=== PATIENT | female | born 1960 | race African-American/Black ===

== ENCOUNTER 2021-01-27 19:44 | Inpatient (IN) | payer BC, SELFPAY ==
--- NOTE | ~2021-01-27 | MR_ITS ---
EXAMINATION: MR MRCP wo/w con/w 3D wo ind DATE: 01/29/2021 11:35 INDICATION: Recurrent pancreatitis. TECHNIQUE: Magnetic resonance imaging (MRI) of the abdomen was performed without and with 20 mL Multi Shanel intravenous contrast. Sequences included coronal T2-weighted FS FSE, coronal T2-weighted FSE, a xial T1-weighted LAVA, coronal FS FIESTA, axial dual-echo T1-weighted SPGR, coronal lava-FLEX, sagitt al T2-weighted FSE, axial T2-weighted FSE, and axial DWI. Thick-slab T2-weighted FSE images were obta ined for magnetic resonance cholangiopancreatography (MRCP). Maximum intensity projection 3-D reconst ructions of the volumetric data were created by the technologist. Postcontrast sequences included cor onal LAVA-flex and time course of axial T1-weighted LAVA. COMPARISON: CT abdomen and pelvis 01/27/2021, 12/03/2015 FINDINGS: ABDOMEN MRI: A 16 mm mass in inferolateral right breast was present on 12/03/2015, likely benign. Ther e is diffuse hepatic steatosis. There are changes of cholecystectomy. The spleen is normal. There is edema in and around the head of the pancreas, consistent with acute interstitial pancreatitis. The ad renal glands and kidneys are normal. There are no dilated loops of bowel. There are no pathologically enlarged lymph nodes. There is no free intraperitoneal fluid. ABDOMEN MRCP: The common duct is normal and measures 5 mm. No choledocholithiasis. IMPRESSION: 1. Acute interstitial pancreatitis. 2. No choledocholithiasis. Reviewed, dictated and finalized at location B. IT OPERATIONS PROCESSOR
--- NOTE | ~2021-01-27 | CT_ITS ---
EXAMINATION: CT abdomen pelvis w con EXAM DATE: 01/27/2021 21:25 INDICATION: Pancreatitis. Back pain. Cough. TECHNIQUE: Spiral CT of the abdomen and pelvis was performed following intravenous injection of 100 m L Omnipaque 350. Axial, coronal and sagittal images of the abdomen and pelvis were reviewed. The do se-length product (DLP) for this examination was 1164.78 mGy-cm. The exposure was tailored according to patient size (auto mA exposure control), and iterative reconstruction (ASIR) was used as addition al dose reduction technique. Comparison is made to prior examination from 10/12/2018. FINDINGS: There is a round mass within the right breast measuring up to 1.4 cm, inferior to the nippl e. No spiculations to this, could be a fibroadenoma but correlation with patient's mammography is rec ommended. The liver, spleen, adrenal glands and pancreas are unremarkable. There are cholecystectomy clips. P ortal and splenic veins are patent. Kidneys enhance symmetrically. There is no hydronephrosis. Th e uterus is unremarkable. Left fundal fibroid measuring about 2 cm. The bladder is unremarkable. Th ere is no retroperitoneal or pelvic lymphadenopathy. There is mild scattered arteriosclerotic disea se. The appendix is normal. The stomach and small bowel are unremarkable. There is expected amount of c olonic stool. No free intraperitoneal gas. The heart is normal in size. There are no pericardial or pleural effusions. The lung bases are unremarkable. There are no osteoblastic or osteolytic les ions identified. IMPRESSION: 1. Small right breast mass without spiculation could be fibroadenoma but correlation with patient's mammography indicated. 2. Small fibroid. Reviewed, dictated and finalized at location A. OR INFORMATION SYSTEMS ARCHITECT IMPRESSION: 1. Small right breast mass without spiculation could be fibroadenoma but corre lation with patient's mammography indicated. 2. Small fibroid.
--- NOTE | ~2021-01-27 | XR_ITS ---
EXAMINATION: XR chest 1V portable EXAM DATE: 01/27/2021 21:02 INDICATION: Cough. Hypertension. TECHNIQUE: Portable AP frontal chest x-ray was obtained. Comparison is made to prior examination from 06/27/2014. FINDINGS: The lungs are clear. There are no pleural effusions. Cardiac silhouette is prominent but magnified on this AP technique. There is no pneumothorax suspected. The bones and soft tissues are unremarkable. IMPRESSION: Unremarkable chest x-ray exam. Reviewed, dictated and finalized at location A. T MARKETING MANAGER
[2021-01-27 19:47] VITALS: BP 182/81; PULSE 72; RESP 17; TEMP 36.2; O2SAT 100
[2021-01-27 20:03] LABS: Basophils Percent Auto 0.3 % (0.2-1.2); Eosinophils Absolute Auto 0.4 K/mm3 (0-0.3); Eosinophils Percent Auto 3.5 % (0-4.4); Hematocrit 39.1 % (37.0-47.0); Hemoglobin 12.6 g/dL (12.0-15.0); Immature Granulocyte Absolute 0.02 K/mm3 (0.00-0.031); Immature Granulocyte Percent A 0.2 % (0-0.5); Lymphocytes Absolute Auto 4.09 K/mm3 (0.9-3.2); Lymphocytes Percent Auto 39.3 % (18.3-44.2); Mean Corpuscular HGB Conc 32.2 g/dl (32-36); Mean Corpuscular Hemoglobin 28.6 pg (26-34); Mean Corpuscular Volume 88.9 fl (80-100); Mean Platelet Volume 10.7 fl (7.4-10.4); Monocytes Absolute Auto 1.1 K/mm3 (0.1-0.6); Monocytes Percent Auto 10.2 % (2.6-8.5); Neutrophils Absolute Auto 4.8 K/mm3 (1.3-6.7); Neutrophils Percent Auto 46.5 % (45.5-73.1); Platelet Count Result 253 k/mm3 (150-375); Red Cell Distribution Width 13.6 % (11.5-14.5); White Blood Count 10.4 K/mm3 (4.5-10.0)
[2021-01-27 20:12] LABS: Alanine Aminotransferase 21 U/L (4-35); Albumin Level 4.4 g/dL (3.5-5.1); Alkaline Phosphatase 126 U/L (38-126); Anion Gap 5 mmol/L (8-16); Aspartate Amino Transferase 20 U/L (14-36); Bilirubin,Total 0.3 mg/dL (0.2-1.3); Blood Urea Nitrogen 15 mg/dL (7-17); Calcium 9.7 mg/dL (8.4-10.2); Carbon Dioxide 29 mmol/L (22-30); Chloride 104 mmol/L (98-107); Estimated CRCL calculation 117 ml/min; Estimated Glomerular Filt Rate > 60; Glucose 126 mg/dL (65-110); Lipase 1254 U/L (23-300); Potassium 4.1 mmol/L (3.4-5.0); Sodium 138 mmol/L (137-145)
[2021-01-27 20:30] VITALS: O2SAT 100
[2021-01-27 20:32] VITALS: BP 172/77; PULSE 68; RESP 18; O2SAT 100
[2021-01-27 20:58] LABS: Add Urine Microscopic? YES; Appearance Urine Clear (Clear); Bilirubin Urine Negative (Negative); Blood Urine Negative (Negative); Color Urine Yellow (Yellow); Glucose Urine UA Negative (Negative); Ketones Urine Negative (Negative); Leukocyte Esterase Ur Negative LEU/UL (Negative); Mucus Urine Rare /lpf; Nitrate Urine Negative (Negative); Protein Urine Negative (Negative); RBC Urine 0-2 /hpf (0-2); Specific Grav Ur 1.026 (1.001-1.035); Squamous Epithelial Cell Urine Occasional /hpf (Few); WBC Urine 0-3 /hpf
[2021-01-27] MEDS: SODIUM CHLORIDE 0.9% IV 1,000 ML 999 ML IV CONT (21:02)
[2021-01-27 21:07] VITALS: BP 153/65; PULSE 78; RESP 20; O2SAT 100
--- NOTE | 2021-01-27 21:13 | ED.ABDPAIN ---
HPI - Abdominal Pain General Chief Complaint: Abdominal Pain Stated Complaint: abd pain Time Seen by Provider: 01/27/21 20:36 Source: patient Mode of arrival: ambulatory Limitations: no limitations History of Present Illness HPI narrative: 60 year old female with PMH HTN, GERD, DM complains of epigastric pain for 5 days. Patient with history of pancreatitis, but originally thought she had abdominal pain due to dry cough she has been having since Friday. Today epigastric pain started radiating to back, became more intense which is similar to previous bouts of pancreatitis. Patient has had a cholecystectomy and does not drink ETOH; states her doctors are unsure why she gets pancreatitis. 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 No flank pain, no dysuria, no hematemesis, no melena. Related Data Home Medications Medication Instructions Recorded Confirmed aspirin 81 mg tablet,delayed 81 mg PO DAILY 04/06/19 01/28/21 release atorvastatin 40 mg tablet 40 mg PO DAILY 04/06/19 01/28/21 insulin glargine 100 unit/mL (3 60 unit SUB-Q DAILY 04/06/19 01/28/21 mL) subcutaneous pen insulin lispro 100 unit/mL 10 unit SUB-Q TIDWM 04/06/19 01/28/21 subcutaneous pen lisinopril 10 mg tablet 10 mg PO DAILY 04/06/19 01/28/21 metformin 1,000 mg tablet 1,000 mg PO DAILY 04/06/19 01/28/21 diphenhydramine HCl 50 mg PO HS PRN 01/28/21 01/28/21 Allergies Allergy/AdvReac Type Severity Reaction Status Date / Time aspirin Allergy Unknown Unknown Verified 01/28/21 03:42 erythromycin base Allergy Unknown Unknown Verified 01/28/21 03:42 Review of Systems Review of Systems: CONSTITUTIONAL: no fever, no weight loss, no confusion EYES: no vision changes, no eye pain ENT: no rhinorrhea, no sore throat, no difficulty swallowing CARDIOVASCULAR: no chest pain, no leg edema, no palpitations RESPIRATORY: no cough, no shortness of breath, no hemoptysis GASTROINTESTINAL: positive for abdominal pain, positive for nausea, no vomiting, no diarrhea GENITOURINARY: no flank pain, no dysuria, no hematuria SKIN: no rash, no jaundice MUSCULOSKELETAL: no back pain, no trauma. NEUROLOGIC: No headache, no dizziness, no focal weakness PSYCHIATRIC: No hallucinations, no suicidal ideation [facility] Past Medical History Medical History (Updated 02/01/21 @ 14:54 by Kimmie Bustamante PA-C) Acid reflux Diabetes Hyperlipidemia Hypertension Surgical History Surgical History History of carpal tunnel surgery History of cholecystectomy History of dilation and curettage History of knee replacement procedure of right knee History of tubal ligation Family History Family History Sibling Family history of thyroid disease Family history of glaucoma Family history of diabetes mellitus in first degree relative Family history of hearing loss Grandparent Family history of glaucoma Family history of hearing loss Mother Family history of diabetes mellitus in first degree relative Other Diabetes mellitus Social History Social History (Updated 01/28/21 @ 14:48 by Sylvia Gonzalez PA-C) Smoking packs per day: 0.5 Smoking cigarettes per day: 10.0 Smoking status: Current every day smoker Tobacco type: cigarettes Alcohol intake: current Substance use: current Substance use type: marijuana Other substance usage details: social drinker on rare occasions. Spiritual care concerns: No Exam Narrative: General: alert, afebrile, answering all questions appropriately Head: normocephalic, atraumatic Eyes: EOMI bilaterally, anicteric, no injection ENT: moist mucous membranes, oropharynx patent, no rhinorrhea Neck: supple, trachea midline, no JVD Chest: equal chest rise bilaterally, no chest wall trauma noted Lungs: clear to auscultation bilaterally, respirations unlabored CV: regu
[2021-01-27 21:15] LABS: Prothrombin Time 12.7 Seconds (11.1-14.7)
[2021-01-27 21:16] LABS: Partial Thromboplastin Time 27.9 SECONDS (22.3-36.8)
[2021-01-27] MEDS: ONDANSETRON INJ 4 MG/2 ML VIAL IV PUSH (21:52)
[2021-01-27] MEDS: MORPHINE SULFATE (*CRX) 4 MG/ML INJ IV PUSH ×2 (21:54→23:43)
[2021-01-27 22:06] VITALS: BP 144/66; PULSE 83; RESP 18; O2SAT 100
[2021-01-27 23:20] VITALS: BP 132/54; PULSE 71; RESP 16; O2SAT 100
[2021-01-28] VITALS (7 sets, daily range): BP systolic 146–157; BP diastolic 64–90; PULSE 60–76; RESP 14–20; TEMP 35.7–36.2; O2SAT 97–100; BMI 38.5
[2021-01-28] MEDS: MORPHINE SULFATE (*CRX) 4 MG/ML INJ IV PUSH ×2 (01:45→06:52)
--- NOTE | 2021-01-28 03:41 | ADMGEN ---
This patient, Alyce Damian, was admitted to Medical Room [facility] @0340. Patient/family oriented to hospital policies and general routines including ID bracelet, bed and alarms, visiting hours, pain management, procedures, bathroom and other care routines, personal items, smoking policy, room service/diet, and visiting hours. Information on how to activate the Rapid Response Team has been discussed. Patient/Family are encouraged to report perceived risks to care and to ask questions if they do not understand what they are told or what they should do.
[2021-01-28] MEDS: LACTATED RINGERS 1,000 ML 200 ML IV CONT (04:01)
[2021-01-28 08:00] LABS: Glucose Point of Care 107 mg/dl (65-105)
[2021-01-28] MEDS: ENOXAPARIN 40 MG/0.4 ML SYRINGE SUB-Q (08:30)
[2021-01-28] MEDS: LACTATED RINGERS 1,000 ML 125 ML IV CONT ×2 (10:17→18:22)
[2021-01-28 11:42] LABS: Glucose Point of Care 104 mg/dl (65-105)
--- NOTE | 2021-01-28 14:36 | PM.IMHP ---
H&P: HPI History of Present Illness Date/Time: 01/28/21 14:36 Chief Complaint: abdominal pain Narrative: Pt is a 60 yo female w/ hx of HTN, HLD, DM, and pancreatitis, presented to ED w/ complaint of epigastric pain x5 days. She states 1 week ago she developed a dry cough and nasal congestion, and thought her coughing was irritating her stomach. She got a covid test which came back negative. She states 5 days ago the epigastric pain worsened and began radiating to her back. She describes the pain as aching in the front and stabbing in the back. Pain was 10/10 prior to pain medication. Her abdominal pain is controlled at this time but she does report that she developed a headache after receiving the morphine. No nausea, vomiting, diarrhea, fever, chills. She states she is not taking deep breaths because it makes the pain worse. Admits to approximately 3 hospitalizations per year due to pancreatitis but does not know what is causing it. She states she only has a drink maybe once every few months but does not drink etoh regularly. She has hx of cholecystectomy. Does not currently have a GI doctor. On presentation pt was found to have labs significant for a lipase of 1254. CT abd/pelv was unremarkable. Pt was admitted for acute on chronic pancreatitis. Review of Systems Review of Systems: General: Denies fevers, chills, bodyaches, or fatigue Eyes: Denies vision changes or eye pain ENT: + nasal congestion, no sore throat Respiratory: + cough, no shortness of breath Cardiovascular: Denies chest pain, palpitations, or lower extremity edema Gastrointestinal: + abdominal pain, no nausea, vomiting, or diarrhea Genitourinary: Denies dysuria or urinary frequency, +concentrated urine Musculoskeletal: + back pain Neurological: + headache (which started after the morphine), paraesthesias, or motor weakness Integumentary: Denies rash or other skin lesions Psychiatric: Denies SI/HI [facility] Past Medical History Medical History (Updated 01/28/21 @ 14:47 by Sylvia Gonzalez PA-C) Acid reflux Diabetes Hyperlipidemia Hypertension Surgical History Surgical History History of carpal tunnel surgery History of cholecystectomy History of dilation and curettage History of knee replacement procedure of right knee History of tubal ligation Family History Family History Sibling Family history of thyroid disease Family history of glaucoma Family history of diabetes mellitus in first degree relative Family history of hearing loss Grandparent Family history of glaucoma Family history of hearing loss Mother Family history of diabetes mellitus in first degree relative Other Diabetes mellitus Social History Social History (Updated 01/28/21 @ 14:48 by Sylvia Gonzalez PA-C) Smoking packs per day: 0.5 Smoking cigarettes per day: 10.0 Smoking status: Current every day smoker Tobacco type: cigarettes Alcohol intake: current Substance use: current Substance use type: marijuana Other substance usage details: social drinker on rare occasions. Spiritual care concerns: No Meds Home Medications and Allergies Home Medications Medication Instructions Recorded Confirmed Type aspirin 81 mg tablet,delayed 81 mg PO DAILY 04/06/19 01/28/21 History release atorvastatin 40 mg tablet 40 mg PO DAILY 04/06/19 01/28/21 History insulin glargine 100 unit/mL (3 60 unit SUB-Q DAILY 04/06/19 01/28/21 History mL) subcutaneous pen insulin lispro 100 unit/mL 10 unit SUB-Q TIDWM 04/06/19 01/28/21 History subcutaneous pen lisinopril 10 mg tablet 10 mg PO DAILY 04/06/19 01/28/21 History metformin 1,000 mg tablet 1,000 mg PO DAILY 04/06/19 01/28/21 History diphenhydramine HCl [Benadryl] 50 mg PO HS PRN 01/28/21 01/28/21 History Allergies Allergy/AdvReac Type Severity Reaction Status Date / Time
[2021-01-28 17:14] LABS: Glucose Point of Care 108 mg/dl (65-105)
[2021-01-29] MEDS: LACTATED RINGERS 1,000 ML 125 ML IV CONT ×2 (02:26→10:21)
[2021-01-29 05:07] LABS: Basophils Percent Auto 0.4 % (0.2-1.2); Eosinophils Absolute Auto 0.2 K/mm3 (0-0.3); Eosinophils Percent Auto 1.9 % (0-4.4); Hemoglobin 12.6 g/dL (12.0-15.0); Immature Granulocyte Absolute 0.01 K/mm3 (0.00-0.031); Immature Granulocyte Percent A 0.1 % (0-0.5); Lymphocytes Absolute Auto 2.52 K/mm3 (0.9-3.2); Lymphocytes Percent Auto 31.6 % (18.3-44.2); Mean Corpuscular HGB Conc 32.3 g/dl (32-36); Mean Corpuscular Hemoglobin 28.8 pg (26-34); Mean Platelet Volume 10.2 fl (7.4-10.4); Monocytes Absolute Auto 0.7 K/mm3 (0.1-0.6); Monocytes Percent Auto 8.2 % (2.6-8.5); Neutrophils Absolute Auto 4.6 K/mm3 (1.3-6.7); Neutrophils Percent Auto 57.8 % (45.5-73.1); Platelet Count Result 243 k/mm3 (150-375); Red Blood Count 4.38 M/mm3 (4.2-5.4); Red Cell Distribution Width 13.4 % (11.5-14.5)
[2021-01-29 05:19] LABS: Alanine Aminotransferase 105 U/L (4-35); Albumin Level 4.3 g/dL (3.5-5.1); Alkaline Phosphatase 160 U/L (38-126); Anion Gap 3 mmol/L (8-16); Aspartate Amino Transferase 55 U/L (14-36); Bilirubin,Total 0.8 mg/dL (0.2-1.3); Blood Urea Nitrogen 9 mg/dL (7-17); Carbon Dioxide 33 mmol/L (22-30); Chloride 102 mmol/L (98-107); Estimated CRCL calculation 101 ml/min; Estimated Glomerular Filt Rate > 60; Glucose 141 mg/dL (65-110); Lipase 223 U/L (23-300); Magnesium 1.9 mg/dL (1.6-2.3); Potassium 4.4 mmol/L (3.4-5.0); Sodium 138 mmol/L (137-145)
[2021-01-29 06:00] VITALS: BP 166/62; PULSE 64; RESP 21; TEMP 36.2; O2SAT 100
[2021-01-29] MEDS: ENOXAPARIN 40 MG/0.4 ML SYRINGE SUB-Q (07:50)
[2021-01-29] MEDS: PANTOPRAZOLE SODIUM IV 40 MG VIAL IV PUSH (07:51)
[2021-01-29 07:58] LABS: Glucose Point of Care 128 mg/dl (65-105)
--- NOTE | 2021-01-29 11:26 | PM.IMPN ---
Progress Note: A&P Assessment and Plan (1) Acute pancreatitis: Qualifiers: Acute pancreatitis complication: no infection or necrosis Pancreatitis type: idiopathic Qualified Code(s): K85.00 - Idiopathic acute pancreatitis without necrosis or infection Code(s): K85.90 - Acute pancreatitis without necrosis or infection, unspecified Status: Acute Assessment and Plan: -Lipase 1254 -CT abd/pelv unremarkable -pt w/ hx of chronic pancreatitis -denies alcohol use, hx of cholecystectomy, no inciting medications noted on medication list -MRCP pending -not currently followed with GI, requesting GI consult to determine cause of recurrent pancreatitis -Consult placed, appreciate any additional recommendations -Lipase normalized at 223 -Will hopefully advance to clears today pending GI consult and MRCP (2) Diabetes: Code(s): E11.9 - Type 2 diabetes mellitus without complications Status: Acute Assessment and Plan: -DM II, home meds are 10 units of novolog TIDWM scheduled and 60 units of Lantus QHS -Glucose checks ACHS -SS low dose and hypoglycemia protocol -Will restart just 10 units Lantus tonight. She is NPO but transitioning to clears today, fasting BS this morning was 141. -Closely monitor (3) Hypertension: Code(s): I10 - Essential (primary) hypertension Status: Acute Assessment and Plan: -resume home meds when tolerating PO -hydralazine available prn (4) Acid reflux: Code(s): K21.9 - Gastro-esophageal reflux disease without esophagitis Status: Acute Assessment and Plan: -protonix 40 mg IV daily (5) Personal history of nicotine dependence: Code(s): Z87.891 - Personal history of nicotine dependence Status: Acute Assessment and Plan: -nicotine patch -discussed smoking cessation with patient for approximately 10 minutes Subjective Date/time seen: 01/29/21 11:26 Interval history: Pt is a 60 yo female w/ hx of HTN, HLD, DM, and pancreatitis, presented to hospital w/ epigastric pain and was admitted for pancreatitis. Today she is feeling much better. Would like to try clears. Still has mild achey pain epigastric area. No N/V. She reiterates that she would like to establish care with a GI doctor in attempt to figure out what is causing her recurrent pancreatitis. Review of Systems Review of Systems: General: Denies fevers, chills, bodyaches, or fatigue Eyes: Denies vision changes or eye pain ENT: + nasal congestion, no sore throat Respiratory: + cough, no shortness of breath Cardiovascular: Denies chest pain, palpitations, or lower extremity edema Gastrointestinal: + abdominal pain, no nausea, vomiting, or diarrhea Genitourinary: Denies dysuria or urinary frequency, +concentrated urine Musculoskeletal: + back pain Neurological: Denies headache, paraesthesias, or motor weakness Integumentary: Denies rash or other skin lesions Exam Narrative: General: No acute distress, non toxic appearing, obese Eyes: PERRL, no scleral icterus HEENT: NCAT, external ears normal, MMM Respiratory: No respiratory distress, Lungs CTA bilaterally, no wheezing Cardiovascular: RRR, no murmur Abdominal: Soft, mild epigastric tenderness, non distended, no rebound or guarding Musculoskeletal: Moves all 4 extremities, no edema Neurological: A/Ox3, speech normal, no facial asymmetry Skin: Warm, dry, no rashes Psychiatric: Normal affect, normal mood Objective Data Vital Signs Vital Signs: Vital Signs - 24 hr 01/28/21 14:00 01/28/21 20:00 01/28/21 22:00 Temperature 96.3 F L 97.2 F L Pulse Rate 60 60 74 Respiratory Rate 14 14 20 Blood Pressure 157/90 H 157/83 H Pulse Oximetry 100 100 98 01/29/21 06:00 Temperature 97.1 F L Pulse Rate 64 Respiratory Rate 21 H Blood Pressure 166/62 H Pulse Oximetry 100 Intake/Output Intake/Output: Intake & Output 01/26/21 01/27/21 01/28/21
[2021-01-29 11:45] LABS: Glucose Point of Care 97 mg/dl (65-105)
--- NOTE | 2021-01-29 13:42 | WPDGICN ---
Assessment and Plan Assessment and plan (1) Acute pancreatitis: Qualifiers: Acute pancreatitis complication: no infection or necrosis Pancreatitis type: idiopathic Qualified Code(s): K85.00 - Idiopathic acute pancreatitis without necrosis or infection Code(s): K85.90 - Acute pancreatitis without necrosis or infection, unspecified Status: Acute Assessment and Plan: Patient admitted the hospital with abdominal pain elevated lipase. CT scan reveals no evidence pancreatitis MRCP likewise reveals no obvious explanation for pancreatitis. It is possible that elevated lipase is spurious in related other conditions. At the present time lipase returned to normal and patient is pain free would recommend advancing to a low-fat diet. Early discharge he may benefit from supplemental pancreatic enzymes. Mild elevation of liver function tests were identified and should be followed to resolution. if patient has idiopathic pancreatitis given no history of gallstones status post cholecystectomy. and no alcohol intake. Consider other etiologies. Lipid panel will be obtained as well as IgG levels. (2) Diabetes: Code(s): E11.9 - Type 2 diabetes mellitus without complications Status: Acute (3) Transaminitis: Code(s): R74.01 - Elevation of levels of liver transaminase levels Status: Acute Assessment and Plan: Elevated transaminases are of uncertain etiology. MRCP is unremarkable suggesting no CBD stones. If she had a stones these have passed spontaneously. Plan to check hepatitis serologies monitor for resolution. Follow-up LFTs after discharge advised. GI Consult Note Consult date/time: 01/29/21 13:42 HPI: Alyce Damian is a 60 year old female I am asked to see at the request of the hospitalist service. Patient states that she developed epigastric discomfort. It was present for 1 week. Began to radiate to her back for this reason she went to the emergency room was found to have an elevated lipase. Lipase has returned to normal today she is feeling much improved hungry and denies any fever or ongoing pain. Patient has a past history of cholecystectomy 20 years ago. She states she has had several episodes of pancreatitis. Most recent episode of pancreatitis was just several months ago. She has had some pain at home that improves on a blander diet. Patient denies any fever. She has no obvious icterus. She denies any weight loss. She has had no recent nausea or vomiting. Patient denies any alcohol intake. She states very infrequent alcoholic beverage intake perhaps every 3 months or so. Review of Systems Review of Systems: All systems reviewed & are unremarkable except as noted in HPI and below PMFSH Past Medical History Medical History (Updated 01/29/21 @ 13:47 by Torey Ruiz MD) Acid reflux Diabetes Hyperlipidemia Hypertension Surgical History Surgical History History of carpal tunnel surgery History of cholecystectomy History of dilation and curettage History of knee replacement procedure of right knee History of tubal ligation Family History Family History Sibling Family history of thyroid disease Family history of glaucoma Family history of diabetes mellitus in first degree relative Family history of hearing loss Grandparent Family history of glaucoma Family history of hearing loss Mother Family history of diabetes mellitus in first degree relative Other Diabetes mellitus Social History Social History (Updated 01/28/21 @ 14:48 by Sylvia Gonzalez PA-C) Smoking packs per day: 0.5 Smoking cigarettes per day: 10.0 Smoking status: Current every day smoker Tobacco type: cigarettes Alcohol intake: current Substance use: current Substance use type: marijuana Other substance usage details: social drinker
[2021-01-29 14:38] VITALS: BP 173/68; PULSE 66; RESP 16; TEMP 36.6; O2SAT 100
[2021-01-29 15:16] LABS: Cholesterol 139 mg/dL (0-200); HDL Direct 45 mg/dL; Triglycerides 91 mg/dL (<150)
[2021-01-29 15:27] LABS: LDL Cholesterol Direct 56 mg/dL
--- NOTE | 2021-01-29 15:27 | PC.NURSE ---
BP 173/68, Kassy Gonzalez VEGETABLE LOADER MACHINE OPERATOR notified of home meds on hold.
[2021-01-29 15:46] LABS: Hepatitis B Surface Antigen Negative (Negative)
[2021-01-29 15:52] LABS: HAV RESULT Negative (Negative); Hepatitis B Core IgM Result Negative (Negative)
[2021-01-29 16:04] LABS: Hepatitis C Virus Antibody Negative (Negative)
[2021-01-29 16:33] LABS: Glucose Point of Care 177 mg/dl (65-105)
[2021-01-29] MEDS: lisinopriL 10 MG TABLET PO (17:42)
[2021-01-29 20:00] VITALS: PULSE 61; RESP 16; O2SAT 100
[2021-01-29] MEDS: INSULIN GLARGINE (*BKC) 100 UNITS/ML 10 UNITS SUB-Q (20:31)
[2021-01-29] MEDS: HYDROmorphone HCL INJ (*CRX) 1 MG/ML SYR 0.5 MG IV PUSH (20:36)
[2021-01-29 21:40] VITALS: BP 161/72; PULSE 61; RESP 16; TEMP 36.6; O2SAT 100
[2021-01-29 21:42] LABS: Glucose Point of Care 153 mg/dl (65-105)
[2021-01-30 04:36] VITALS: BP 148/84; PULSE 67; RESP 14; TEMP 36.5; O2SAT 100
[2021-01-30 05:45] LABS: Basophils Percent Auto 0.3 % (0.2-1.2); Eosinophils Absolute Auto 0.1 K/mm3 (0-0.3); Eosinophils Percent Auto 1.4 % (0-4.4); Hematocrit 39.3 % (37.0-47.0); Hemoglobin 12.7 g/dL (12.0-15.0); Immature Granulocyte Absolute 0.01 K/mm3 (0.00-0.031); Immature Granulocyte Percent A 0.1 % (0-0.5); Lymphocytes Absolute Auto 2.32 K/mm3 (0.9-3.2); Lymphocytes Percent Auto 33.3 % (18.3-44.2); Mean Corpuscular HGB Conc 32.3 g/dl (32-36); Mean Corpuscular Hemoglobin 28.2 pg (26-34); Mean Corpuscular Volume 87.3 fl (80-100); Mean Platelet Volume 10.1 fl (7.4-10.4); Monocytes Absolute Auto 0.7 K/mm3 (0.1-0.6); Monocytes Percent Auto 10.6 % (2.6-8.5); Neutrophils Absolute Auto 3.8 K/mm3 (1.3-6.7); Neutrophils Percent Auto 54.3 % (45.5-73.1); Platelet Count Result 241 k/mm3 (150-375); Red Cell Distribution Width 13.1 % (11.5-14.5)
[2021-01-30 06:13] LABS: Alanine Aminotransferase 162 U/L (4-35); Albumin Level 4.3 g/dL (3.5-5.1); Alkaline Phosphatase 190 U/L (38-126); Anion Gap 7 mmol/L (8-16); Aspartate Amino Transferase 120 U/L (14-36); Bilirubin,Total 0.9 mg/dL (0.2-1.3); Blood Urea Nitrogen 12 mg/dL (7-17); Calcium 9.8 mg/dL (8.4-10.2); Carbon Dioxide 28 mmol/L (22-30); Chloride 100 mmol/L (98-107); Estimated CRCL calculation 101 ml/min; Estimated Glomerular Filt Rate > 60; Glucose 163 mg/dL (65-110); Lipase 169 U/L (23-300); Potassium 4.2 mmol/L (3.4-5.0); Sodium 135 mmol/L (137-145)
[2021-01-30 07:48] LABS: Glucose Point of Care 148 mg/dl (65-105)
[2021-01-30 08:22] VITALS: RESP 14; O2SAT 99
[2021-01-30] MEDS: lisinopriL 10 MG TABLET PO (08:22)
[2021-01-30] MEDS: ATORVASTATIN 40 MG TABLET PO (08:22)
[2021-01-30] MEDS: ENOXAPARIN 40 MG/0.4 ML SYRINGE SUB-Q (08:22)
[2021-01-30] MEDS: PANTOPRAZOLE SODIUM IV 40 MG VIAL IV PUSH (08:22)
[2021-01-30] MEDS: ASPIRIN 81 MG ENTERIC TABLET PO (08:22)
--- NOTE | 2021-01-30 08:33 | WPDGIPROGNO ---
Progress Note: A&P Assessment and Plan (1) Acute pancreatitis: Qualifiers: Acute pancreatitis complication: no infection or necrosis Pancreatitis type: idiopathic Qualified Code(s): K85.00 - Idiopathic acute pancreatitis without necrosis or infection Code(s): K85.90 - Acute pancreatitis without necrosis or infection, unspecified Status: Acute Assessment and Plan: Patient appears to have acute pancreatitis. MRCP on review review studies indeed suggests some mild pancreatitis around the head of the pancreas. Common bile duct appears normal. Patient has a distant history of cholecystectomy. No evidence for gallstones causing her current episode. She did this not drink. Triglyceride level normal. It appears as though she has idiopathic pancreatitis. Supportive care is advised. We will add Creon as she has had frequent relapses recently. She should remain a low-fat diet having previous cholecystectomy. (2) Transaminitis: Code(s): R74.01 - Elevation of levels of liver transaminase levels Status: Acute Assessment and Plan: Elevated LFTs identified these have continued to increase. Likely on the basis of the pancreatitis. Other etiologies cannot be excluded. Will check hepatitis serologies but also other laboratory parameters for other etiologies for hepatitis. These can be followed up after discharge. LFTs because they are elevated should be repeated 1 week after discharge. (3) Diabetes: Code(s): E11.9 - Type 2 diabetes mellitus without complications Status: Acute Subjective Date/time seen: 01/30/21 08:33 Patient feels much better today. Tolerating diet. Although she had modest difficulty with low-fat diet yesterday. She denies any fever. No significant abdominal pain today. Review of Systems Review of Systems: All systems reviewed & are unremarkable except as noted in HPI and below Exam Narrative: Physical exam reveals patient be alert. Vital signs stable. HEENT exam reveals no icterus. Lungs are clear. Heart without murmur. Abdomen bowel sounds present soft nontender with no organomegaly. Rectal exam deferred at this time. Objective Data Vital Signs Vital Signs: Vital Signs - 24 hr 01/29/21 14:38 01/29/21 20:00 01/29/21 21:40 Temperature 97.8 F 97.8 F Pulse Rate 66 61 61 Respiratory Rate 16 16 16 Blood Pressure 173/68 H 161/72 H Pulse Oximetry 100 100 100 01/30/21 04:36 Temperature 97.7 F Pulse Rate 67 Respiratory Rate 14 Blood Pressure 148/84 H Pulse Oximetry 100 Intake/Output Intake/Output: Intake & Output 01/27/21 01/28/21 01/29/21 01/30/21 23:59 23:59 23:59 23:59 Intake Total 1000 1999 2960 150 Output Total 2200 1000 Balance 1000 1999 760 -850 Meds/Results Medications: Active Medications Generic Name Dose Route Start Last Admin Trade Name Freq PRN Reason Stop Dose Admin Aspirin 81 mg 01/30/21 09:00 01/30/21 08:22 Aspirin 81 Mg Enteric Tablet PO 81 mg DAILY ANDREINA Administration Atorvastatin Calcium 40 mg 01/30/21 09:00 01/30/21 08:22 Atorvastatin 40 Mg Tablet PO 40 mg DAILY ANDREINA Administration Dextrose 12.5 gm 01/28/21 07:09 Dextrose 50% 25 Gm/50 Ml Syringe IV PUSH PRN PRN Hypoglycemia Protocol Diphenhydramine HCl 50 mg 01/29/21 15:29 Diphenhydramine Hcl Cap 25 Mg Capsule PO HS PRN Insomnia Enoxaparin Sodium 40 mg 01/28/21 09:00 01/30/21 08:22 Enoxaparin 40 Mg/0.4 Ml Syringe SUB-Q 40 mg DAILY ANDREINA Administration Glucagon 1 mg 01/28/21 07:09 Glucagon For Inj 1 Mg Vial IM PRN PRN Hypoglycemia Protocol Glucose 15 gm 01/28/21 07:09 Glucose Oral Gel 15 Gm Of Glucse In 37.5 Gm Tube PO PRN PRN Hypoglycemia Protocol Hydralazine HCl 5 mg 01/28/21 07:13 Hydralazine Hcl 20 Mg/Ml Vial IV PUSH Q8H PRN Blood Pressure - High Hydromorphone HCl 0.5 mg 01/28/21 14:45 01/29/21 20:36
--- NOTE | 2021-01-30 11:02 | PM.DS ---
DS: Admitting Diagnosis Discharge Date 01/30/21 Admitting Diagnosis pancreatitis DS: Discharge Diagnosis Discharge Diagnosis (1) Acute pancreatitis: Qualifiers: Acute pancreatitis complication: no infection or necrosis Pancreatitis type: idiopathic Qualified Code(s): K85.00 - Idiopathic acute pancreatitis without necrosis or infection Code(s): K85.90 - Acute pancreatitis without necrosis or infection, unspecified Status: Acute Assessment and Plan: -Lipase 1254 down to normal at d/c -CT abd/pelv unremarkable -pt w/ hx of chronic pancreatitis--suspect idiopathic -denies alcohol use, hx of cholecystectomy, no inciting medications noted on medication list -MRCP with no retained stone -GI consulted and will follow up outpt for test results and further plan of care. he recommends creon. (2) Diabetes: Code(s): E11.9 - Type 2 diabetes mellitus without complications Status: Acute Assessment and Plan: Last glucose 179 -continue home regimen but educated to decrease as needed since her diet has been altered. (3) Hypertension: Code(s): I10 - Essential (primary) hypertension Status: Acute Assessment and Plan: last bp 148/84 -continue home lisinopril (4) Acid reflux: Code(s): K21.9 - Gastro-esophageal reflux disease without esophagitis Status: Acute Assessment and Plan: no further symptoms -f/u with GI (5) Personal history of nicotine dependence: Code(s): Z87.891 - Personal history of nicotine dependence Status: Acute Assessment and Plan: -nicotine patch -discussed smoking cessation with patient for approximately 5 min (6) Transaminitis: Code(s): R74.01 - Elevation of levels of liver transaminase levels Status: Acute Assessment and Plan: A little worse the day of d/c. Discussed with GI who suspects it is delayed due to pancreatitis and to f/u with outpt labs. -hepatitis negative (7) Breast mass, right: Code(s): N63.10 - Unspecified lump in the right breast, unspecified quadrant Status: Acute Assessment and Plan: Noted on Ct. Pt says she is a view years behind on her mammograms. I gave her a copy of her report and she is going to f/u with a mammogram. DS: Summary Hospital Course Hospital Course: DOS 01/30/21 patient is a 60-year-old female With a history of pancreatitis who presented emergency room on 01/27/2021 for epigastric pain. initial white blood cell count 10.4, hemoglobin and hematocrit normal, platelets 253. BMP relatively normal. UA negative. Lipase 1254. Chest x-ray negative. Initial CT showed unremarkable pancreas but patient was admitted for pancreatitis. She underwent MRCP which did show pancreatitis but no retained stone. She was not on any medications that commonly cause pancreatitis. She does not drink alcohol. She has a history of cholecystectomy. She slowly improved with conservative treatment. Her liver enzymes were elevated on discharge and GI suspects that they will trended down. He recommends following up in his office and repeating liver enzymes outpatient. She was also noted to have a breast mass that I recommend that she see her primary care for so she can get a mammo. Overall, the patient was feeling much better and ready to go the day of discharge. She was educated about the worrisome signs and symptoms come back to emergency room for and was discharged in stable condition. She understands that she may need to adjust her diabetes medications if her diet changes. She is going to continue to monitor her glucose levels. Time Spent with Patient Time attestation: Total time spent providing and/or coordinating discharge services:38 min Time spent: Greater than 30 minutes Exam Narrative: General: Well developed well nourished patient in NAD HEENT: normocephalic Neck: supple Neuro: Alert and oriented x4
[2021-01-30 11:24] LABS: Glucose Point of Care 179 mg/dl (65-105)
[2021-01-31 09:55] LABS: Immunoglobulin G, Serum 1786 mg/dL (600-1640); Immunoglobulin G1 1057 mg/dL (382-929); Immunoglobulin G2 485 mg/dL (241-700); Immunoglobulin G3 109 mg/dL (22-178); Immunoglobulin G4 89.7 mg/dL (4.0-86.0)
[2021-02-01 14:17] LABS: Mitochondrial (M2) Ab (IgG) <=20.0 U (<=20.0)
[2021-02-01 18:16] LABS: SM Antibody <1.0; SM/RNP Antibody <1.0
[2021-02-02 12:01] LABS: Ceruloplasmin 36 mg/dL (18-53)
== END 2021-01-30 12:05 | disposition home or self-care (01) | DRG 440 ==
LOC: ANHED 23:53 → ANH2MED 01-28 03:27
PROVIDERS: Emergency Medicine; Internal Medicine Gastroenterology; Physician Assistant; Admitting Provider Internal Medicine; Emergency Provider Emergency Medicine; PCP Internal Medicine; Visit Provider Physician Assistant
DX: K85.00 Idiopathic acute pancreatitis without necrosis or infection (principal); I10 Essential (primary) hypertension; Z23 Encounter for immunization; K21.9 Gastro-esophageal reflux disease without esophagitis; E11.9 Type 2 diabetes mellitus without complications; E78.5 Hyperlipidemia, unspecified; Z96.651 Presence of right artificial knee joint; F17.210 Nicotine dependence, cigarettes, uncomplicated; N63.0 Unspecified lump in unspecified breast; E66.9 Obesity, unspecified; Z68.38 Body mass index [BMI] 38.0-38.9, adult; Z90.49 Acquired absence of other specified parts of digestive tract
CPT/HCPCS: 36415; 71045; 74177; 74183; 76376; 80053; 80061; 80074; 81001; 81025; 82104; 82390; 82728; 82784; 82787; 82948; 83520; 83690; 83735; 85025; 85610; 85730; 86038; 86235; 90471; 90653; 96361; 96374; 96375; 96376; 99285; A9270; A9577; C9113; G0008; G0378; J1170; J1650; J1815; J2270; J2405; J7030; J7120; Q9967

== ENCOUNTER 2021-02-14 15:22 | Outpatient (CLI) | payer BC, SELFPAY ==
[2021-02-14 15:53] LABS: Hematocrit 36.9 % (37.0-47.0); Hemoglobin 11.7 g/dL (12.0-15.0); Mean Corpuscular HGB Conc 31.7 g/dl (32-36); Mean Corpuscular Hemoglobin 28.4 pg (26-34); Mean Corpuscular Volume 89.6 fl (80-100); Mean Platelet Volume 10.6 fl (7.4-10.4); Platelet Count Result 279 k/mm3 (150-375); Red Blood Count 4.12 M/mm3 (4.2-5.4); Red Cell Distribution Width 13.5 % (11.5-14.5); White Blood Count 12.8 K/mm3 (4.5-10.0)
[2021-02-14 16:28] LABS: Alanine Aminotransferase 17 U/L (4-35); Albumin Level 4.1 g/dL (3.5-5.1); Alkaline Phosphatase 124 U/L (38-126); Aspartate Amino Transferase 23 U/L (14-36); Bilirubin,Total 0.3 mg/dL (0.2-1.3); Lipase 120 U/L (23-300)
== END 2021-02-14 15:23 | disposition home or self-care (01) ==
LOC: ANHLAB 15:24
PROVIDERS: Visit Provider Internal Medicine Gastroenterology
DX: R74.01 Elevation of levels of liver transaminase levels (principal); K85.00 Idiopathic acute pancreatitis without necrosis or infection
CPT/HCPCS: 36415; 80076; 83690; 85027

== ENCOUNTER 2021-02-22 08:15 | Outpatient (CLI) | payer BC, SELFPAY ==
--- NOTE | 2021-02-22 | ECG_ITS ---
Measurements Intervals Independence Rate: 74 P: 61 MI: 179 QRS: 67 QRSD: 84 T: 60 QT: 377 QTc: 420 Interpretive Statements SINUS RHYTHM NONSPECIFIC ST & T-WAVE ABNORMALITY- DIFFUSE LEADS BASELINE WANDER- I, II, AVR, AVL, AVF, V1-V3 BORDERLINE ECG Electronically Signed On 02-22-2021 10:56:30 [employer] by Castillo Erwin D.O.
--- NOTE | ~2021-02-22 | XR_ITS ---
EXAMINATION: XR chest 2V DATE: 02/22/2021 08:40 INDICATION: Essential hypertension TECHNIQUE: Frontal and lateral views of the chest are obtained COMPARISON: 01/27/2021 FINDINGS: The lungs are free of acute opacities. There is no pleural effusion or pneumothorax. The ca rdiomediastinal silhouette is normal. There is mild thoracic spondylosis. IMPRESSION: 1. No acute cardiopulmonary abnormality. Reviewed, dictated and finalized at location A. [employer]
== END 2021-02-22 08:16 | disposition home or self-care (01) ==
DX: I10 Essential (primary) hypertension (principal)
CPT/HCPCS: 71046; 93005

== ENCOUNTER 2022-10-21 01:54 | Day surgery (SDC) | payer BC, SELFPAY ==
[2022-10-08 13:00] VITALS: BMI 37.8
[2022-10-21 06:49] LABS: Glucose Point of Care 177 mg/dl (65-105)
[2022-10-21 06:50] VITALS: BP 175/81; PULSE 65; RESP 16; TEMP 36.6; O2SAT 100
[2022-10-21] MEDS: LACTATED RINGERS 1,000 ML 150 ML IV CONT (06:53)
--- NOTE | 2022-10-21 07:23 | PM.HPGS ---
History of Present Illness History of Present Illness Consent: Risks, benefits, and alternatives have been discussed and questions answered. Patient agrees to proceed with procedure. Chief complaint: neoplasm screening Narrative: Alyce Damian is a 62 year old female Presents for screening colonoscopy. Patient's current weight appetite and bowel movements are normal. Patient denies abdominal pain. She has had no bleeding. Family history noncontributory. She does have a past history of pancreatitis currently felt to be stable and resolved. Patient presents today for neoplasia screening. Review of Systems Review of Systems: Review of systems noncontributory. [facility] Past Medical History Medical History Acid reflux Diabetes Hyperlipidemia Hypertension Surgical History Surgical History History of carpal tunnel surgery History of cholecystectomy History of dilation and curettage History of knee replacement procedure of right knee History of tubal ligation Family History Family History Sibling Family history of thyroid disease Family history of glaucoma Family history of diabetes mellitus in first degree relative Family history of hearing loss Grandparent Family history of glaucoma Family history of hearing loss Mother Family history of diabetes mellitus in first degree relative Other Diabetes mellitus Social History Social History (Updated 08/02/22 @ 11:03 by Katie De La Cruz CMA) Smoking packs per day: 1 Smoking cigarettes per day: 20.0 Smoking status: Current every day smoker Tobacco type: cigarettes Alcohol intake: current Substance use: current Substance use type: marijuana Other substance usage details: social drinker on rare occasions. Lack of Transportation: No Lack of Food: Never True Current Housing: I Do Not Have Housing Concerned About Future Housing: No Difficulty Paying Gas/Electric Bills: No Difficulty Paying for Meds: No Currently Unemployed: No Education: Associate Degree Difficulty w/ Childcare or Family Care: No Living arrangements: with family Spiritual care concerns: No Meds Home Medications and Allergies Home Medications Medication Instructions Recorded Confirmed Type aspirin 81 mg tablet,delayed 81 mg PO DAILY 04/06/19 10/21/22 History release (Adult Aspirin Regimen) atorvastatin 40 mg tablet 40 mg PO DAILY 04/06/19 10/21/22 History lisinopril 10 mg tablet 10 mg PO DAILY 04/06/19 10/21/22 History metformin 1,000 mg tablet 1,000 mg PO DAILY 04/06/19 10/21/22 History insulin aspart U-100 100 unit/mL 10 unit subcut TID 02/14/21 10/21/22 History (3 mL) subcutaneous pen (Novolog FlexPen U-100 Insulin aspart) insulin detemir U-100 100 unit/mL 60 unit subcut DAILY 02/14/21 10/21/22 History (3 mL) subcutaneous pen Allergies Allergy/AdvReac Type Severity Reaction Status Date / Time erythromycin base Allergy Unknown Unknown Verified 10/21/22 06:48 Vital Signs Vital Signs - 24 hr 10/21/22 06:50 Temperature 97.8 F Pulse Rate 65 Respiratory Rate 16 Blood Pressure 175/81 H Pulse Oximetry 100 Oxygen Delivery Room Air Exam Narrative: Physical exam reveals patient to be alert. Vital signs stable. HEENT exam is unremarkable. Patient is anicteric. Lungs are clear to auscultation and percussion. Heart is without murmur or extra sounds. Abdomen bowel sounds are present soft nontender with no organomegaly. Digital external rectal exam is normal. Assessment and Plan Assessment and plan (1) Encounter for screening colonoscopy: Code(s): Z12.11 - Encounter for screening for malignant neoplasm of colon Status: Acute Assessment and Plan: Patient presents today for screening colonoscopy. Patient appears to be
--- NOTE | 2022-10-21 07:42 | WPDANESEPPF ---
Anes - Initial Pre Proc Eval Procedure: Operation Date: 10/21/22 08:00 Proposed Procedures p Screening Colonoscopy - Torey Ruiz MD Date/Time: 10/21/22 07:42 Surgeon: Torey Ruiz MD Pre Op Diagnosis: neoplasm screening Patient Data Age: 62 Gender: F Height: 1.63 m Weight: 101.9 kg Last Vital Signs Temp 97.8 F 10/21/22 06:50 Pulse 65 10/21/22 06:50 Resp 16 10/21/22 06:50 BP 175/81 H 10/21/22 06:50 Pulse Ox 100 10/21/22 06:50 O2 Del Method Room Air 10/21/22 06:50 Allergies Allergy/AdvReac Type Severity Reaction Status Date / Time erythromycin base Allergy Unknown Unknown Verified 10/21/22 06:48 Home Medications Medication Instructions Recorded Confirmed Type aspirin 81 mg tablet,delayed 81 mg PO DAILY 04/06/19 10/21/22 History release (Adult Aspirin Regimen) atorvastatin 40 mg tablet 40 mg PO DAILY 04/06/19 10/21/22 History lisinopril 10 mg tablet 10 mg PO DAILY 04/06/19 10/21/22 History metformin 1,000 mg tablet 1,000 mg PO DAILY 04/06/19 10/21/22 History insulin aspart U-100 100 unit/mL 10 unit subcut TID 02/14/21 10/21/22 History (3 mL) subcutaneous pen (Novolog FlexPen U-100 Insulin aspart) insulin detemir U-100 100 unit/mL 60 unit subcut DAILY 02/14/21 10/21/22 History (3 mL) subcutaneous pen Laboratory Tests 10/21/22 06:47 POC Capillary Glucose 177 H mg/dl (65-105) Patient hx anesthesia problems: none Family hx anesthesia problems: none Results Review: All pre-operative results and documents have been reviewed as part of the pre-operative evaluation. [facility] Past Medical History Medical History Acid reflux Diabetes Hyperlipidemia Hypertension Surgical History Surgical History History of carpal tunnel surgery History of cholecystectomy History of dilation and curettage History of knee replacement procedure of right knee History of tubal ligation Family History Family History Sibling Family history of thyroid disease Family history of glaucoma Family history of diabetes mellitus in first degree relative Family history of hearing loss Grandparent Family history of glaucoma Family history of hearing loss Mother Family history of diabetes mellitus in first degree relative Other Diabetes mellitus Social History Social History (Updated 08/02/22 @ 11:03 by Katie De La Cruz [facility]) Smoking packs per day: 1 Smoking cigarettes per day: 20.0 Smoking status: Current every day smoker Tobacco type: cigarettes Alcohol intake: current Substance use: current Substance use type: marijuana Other substance usage details: social drinker on rare occasions. Lack of Transportation: No Lack of Food: Never True Current Housing: I Do Not Have Housing Concerned About Future Housing: No Difficulty Paying Gas/Electric Bills: No Difficulty Paying for Meds: No Currently Unemployed: No Education: Associate Degree Difficulty w/ Childcare or Family Care: No Living arrangements: with family Spiritual care concerns: No Anes - Eval Final PreProcedure Day of Procedure 10/21/22 07:42 Patient weight: obese Heart: regular rate and rhythm Lungs: clear to auscultation Airway: Mallampati scale class III Neurological: alert and oriented Last oral intake: >/= 8 hours ASA classification: III Emergent: no Anesthetic plan: proceed Anesthesia type and monitoring: general GIVS and standard monitoring Results Review: All pre-operative results and documents have been reviewed as part of the pre-operative evaluation. Informed Consent: The patient's anesthetic plan and its attendant risks and benefits were discussed with the patient/family/POA. Questions were solicited and answers provided to the satisfaction of the patient/family/POA.
[2022-10-21 08:15] VITALS: BP 127/76; PULSE 71; RESP 25; O2SAT 100
[2022-10-21 08:25] VITALS: BP 144/86; PULSE 70; RESP 23; O2SAT 100
[2022-10-21 08:35] VITALS: BP 135/79; PULSE 66; RESP 22; O2SAT 100
[2022-10-21 08:38] LABS: Glucose Point of Care 180 mg/dl (65-105)
== END 2022-10-21 08:47 | disposition home or self-care (01) ==
PROVIDERS: Visit Provider Internal Medicine Gastroenterology
PROC: 0DJD8ZZ Inspection of Lower Intestinal Tract, Via Natural or Artificial Opening Endoscopic (ICD-10-PCS; CPT 45378; principal; 2022-10-21 08:00)
DX: Z12.11 Encounter for screening for malignant neoplasm of colon (principal); K63.5 Polyp of colon; K64.8 Other hemorrhoids; K21.9 Gastro-esophageal reflux disease without esophagitis; E11.9 Type 2 diabetes mellitus without complications; E78.5 Hyperlipidemia, unspecified; I10 Essential (primary) hypertension; F17.210 Nicotine dependence, cigarettes, uncomplicated; F12.90 Cannabis use, unspecified, uncomplicated; Z79.82 Long term (current) use of aspirin; Z79.84 Long term (current) use of oral hypoglycemic drugs; Z79.4 Long term (current) use of insulin; E66.9 Obesity, unspecified; Z68.38 Body mass index [BMI] 38.0-38.9, adult
CPT/HCPCS: 45380; 82948; 88305; J2704; J7120

== ENCOUNTER 2022-12-24 07:20 | Outpatient (CLI) | payer BC, SELFPAY ==
--- NOTE | ~2022-12-24 | MM_ITS ---
EXAMINATION: MM screening pablo BI w joselito HISTORY: Screening TECHNIQUE: Craniocaudal and mediolateral oblique 3-D tomosynthesis images were obtained and synthetic 2-D images were generated. CAD analysis was submitted and interpreted. COMPARISON: Comparison to multiple prior studies sequentially, with oldest reviewed study dated 09/2013. BREAST PARENCHYMAL COMPOSITION: There are scattered areas of fibroglandular density. FINDINGS: Bilateral breast asymmetries are stable. There is no evidence of suspicious mass, calcifica tion, or architectural distortion to suggest malignancy in either breast. There has been no suspiciou s interval change. IMPRESSION: 1. No mammographic evidence of malignancy. 2. Recommend routine screening mammography in one year. BI-RADS Category 1: Negative Reviewed, dictated and finalized at location A.
== END 2022-12-24 07:21 | disposition home or self-care (01) ==
LOC: ANHIMG 07:20
PROVIDERS: Visit Provider Registered Nurse
DX: Z12.31 Encounter for screening mammogram for malignant neoplasm of breast (principal)
CPT/HCPCS: 77063; 77067

== ENCOUNTER 2024-03-07 21:20 | Emergency (ER) | payer BC, SELFPAY ==
--- NOTE | ~2024-03-07 | CT_ITS ---
CT of the Abdomen and Pelvis: Indication: Epigastric pain Technique: 2.5 mm axial scans were obtained through the abdomen and pelvis following intravenous adm inistration of 100 cc of Omnipaque 350. Dose reduction technique was used on this scan by utilizing a utomated exposure control and iterative reconstruction technique. The dose-length product (DLP) was 1 022.97 mGy-cm. COMPARISON: 01/27/2021 Findings: Scans through the lung bases are unremarkable. The liver, spleen, pancreas, adrenals and kidneys are within normal limits. Cholecystectomy clips are present. No evidence of aortic aneurysm. No lymphadenopathy. No bowel obstruction or bowel wall thickening. There is no evidence to suggest acute appendicitis. Images through the pelvis were performed. Urinary bladder unremarkable. No pelvic mass seen. No ascit es. Impression: No significant abnormalities seen. Reviewed, dictated and finalized at [facility]. R PHOTOVOLTAIC SYSTEMS ENGINEER Impression: No significant abnormalities seen.
[2024-03-07 21:24] VITALS: BP 156/66; PULSE 70; RESP 20; TEMP 36.5; O2SAT 100
--- NOTE | 2024-03-07 22:49 | PC.NURSE ---
pt states they are unable to urinate at this time. educated pt to use call light with any urge to provide UA.
[2024-03-07 22:51] LABS: Basophils Percent Auto 0.4 % (0.2-1.2); Eosinophils Absolute Auto 0.1 K/mm3 (0-0.3); Eosinophils Percent Auto 1.5 % (0-4.4); Hematocrit 37.1 % (37.0-47.0); Hemoglobin 12.1 g/dL (12.0-15.0); Immature Granulocyte Absolute 0.03 K/mm3 (0.00-0.031); Immature Granulocyte Percent A 0.4 % (0-0.5); Lymphocytes Absolute Auto 2.75 K/mm3 (0.9-3.2); Lymphocytes Percent Auto 32.5 % (18.3-44.2); Mean Corpuscular HGB Conc 32.6 g/dl (32-36); Mean Corpuscular Hemoglobin 28.2 pg (26-34); Mean Corpuscular Volume 86.5 fl (80-100); Mean Platelet Volume 10.9 fl (7.4-10.4); Monocytes Absolute Auto 0.7 K/mm3 (0.1-0.6); Monocytes Percent Auto 8.5 % (2.6-8.5); Neutrophils Absolute Auto 4.8 K/mm3 (1.3-6.7); Neutrophils Percent Auto 56.7 % (45.5-73.1); Platelet Count Result 241 k/mm3 (150-375); Red Blood Count 4.29 M/mm3 (4.2-5.4); White Blood Count 8.5 K/mm3 (4.5-10.0)
[2024-03-07 23:05] LABS: Alanine Aminotransferase 199 U/L (6-35); Albumin Level 3.9 g/dL (3.5-5.1); Alkaline Phosphatase 187 U/L (38-126); Anion Gap 1 mmol/L (4-12); Aspartate Amino Transferase 294 U/L (14-36); Blood Urea Nitrogen 15 mg/dL (7-17); Calcium 9.2 mg/dL (8.4-10.2); Carbon Dioxide 26 mmol/L (22-30); Chloride 110 mmol/L (98-107); Estimated CRCL calculation 99 ml/min; Estimated Glomerular Filt Rate > 60; Glucose 152 mg/dL (65-110); Lipase 226 U/L (23-300); Potassium 3.8 mmol/L (3.4-5.0); Sodium 137 mmol/L (137-145)
[2024-03-07 23:14] VITALS: BP 134/70; PULSE 64; RESP 18; O2SAT 99
--- NOTE | 2024-03-07 23:20 | PC.NURSE ---
Pt states she does not feel like she is able to provide a urine sample at this time, but will alert staff when she feels like she can
--- NOTE | 2024-03-07 23:59 | ED_ITS ---
HPI - Abdominal Pain General Chief Complaint: Abdominal Pain <Fidel Muniz PA-C - Last Filed: 03/08/24 01:56> Stated Complaint: back pain, abd pain worse after eating <Fidel Muniz PA-C - Last Filed: 03/08/24 01:56> Time Seen by Provider: 03/07/24 23:26 <Fidel Muniz PA-C - Last Filed: 03/08/24 01:56> Source: patient <MARY Bonds Last Filed: 03/08/24 01:56> Mode of arrival: ambulatory <Fidel Muniz PA-C - Last Filed: 03/08/24 01:56> Limitations: no limitations <Fidel Muniz PA-C - Last Filed: 03/08/24 01:56> History of Present Illness HPI narrative: This is 63-year-old female with PMH of acute pancreatitis, HTN, diabetes mellitus who presents to the ED for chief complaint of upper abdominal pain x1 week. Reports pain is been intermittent but is certainly worse with the eating. She has tried to transition from regular meals to just eating broth. She states she has had pancreatitis several times in the past so she has tried to change her diet with minimal relief. States that she does not drink alcohol. She reports surgical history of cholecystectomy several years ago. Endorses mild right flank pain as well but denies urinary symptoms. Denies fevers, chills, nausea, vomiting, diarrhea or chest pain. <MARY Bonds Last Filed: 03/08/24 01:56> Related Data Home Medications: Home Medications ?Medication ?Instructions ?Recorded ?Confirmed ?Last Taken ?Type aspirin 81 mg tablet,delayed 81 mg PO DAILY 04/06/19 06/20/23 Unknown History release (Adult Aspirin Regimen) atorvastatin 40 mg tablet 40 mg PO DAILY 04/06/19 06/20/23 Unknown History lisinopril 10 mg tablet 10 mg PO DAILY 04/06/19 06/20/23 Unknown History metformin 1,000 mg tablet 1,000 mg PO DAILY 04/06/19 06/20/23 Unknown History insulin aspart U-100 100 unit/mL 10 unit subcut TID 02/14/21 06/20/23 Unknown History (3 mL) subcutaneous pen (Novolog FlexPen U-100 Insulin aspart) insulin detemir U-100 100 unit/mL 60 unit subcut DAILY 02/14/21 06/20/23 Unknown History (3 mL) subcutaneous pen <Fidel Muniz PA-C - Last Filed: 03/08/24 01:56> Allergies/Adverse Reactions: Allergies Allergy/AdvReac Type Severity Reaction Status Date / Time erythromycin base Allergy Unknown Unknown Verified 03/07/24 21:21 <Fidel Muniz PA-C - Last Filed: 03/08/24 01:56> Review of Systems 2 Review of Systems: All systems as dictated in HPI <Fidel Muniz PA-C - Last Filed: 03/08/24 01:56> [facility] Past Medical History Medical History: Medical History Acid reflux Diabetes Hyperlipidemia Hypertension <Fidel Muniz PA-C - Last Filed: 03/08/24 01:56> Surgical History Surgical History: Surgical History History of carpal tunnel surgery History of cholecystectomy History of dilation and curettage History of knee replacement procedure of right knee History of tubal ligation <Fidel Muniz PA-C - Last Filed: 03/08/24 01:56> Family History Family History: Family History Sibling Family history of thyroid disease Family history of glaucoma Family history of diabetes mellitus in first degree relative Family history of hearing loss Grandparent Family history of glaucoma Family history of hearing loss Mother Family history of diabetes mellitus in first degree relative Other Diabetes mellitus <Fidel Muniz PA-C - Last Filed: 03/08/24 01:56> Social History Social History: Social History Smoking packs per day: 1 Smoking cigarettes per day: 20.0 Smoking status: Current every day smoker Tobacco type: cigarettes Alcohol intake: current Substance use: current Substance use type: marijuana Other substance usage details: social drinker on rare occasions. Lack of Transportation: No Lack of Food: Never True Current Housing: I Do Not Have Housing Concerned About Future Housing: No Difficulty Paying Gas/Electric Bills: No Difficulty Paying for Meds: No Currently Unemployed: No Education: Associate Degree Difficulty w/ Childcare or Family Care: No Living arrangements: with family Spiritual care concerns: No <Fidel Muniz PA-C - Last Filed: 03/08/24 01:56> Exam 2 Narrative: GENERAL: Well-appearing, well-nourished, and in no acute distress. HEAD: Normocephalic, atraumatic. EYES: PERRLA and EOMI. ENT: Nares clear, no rhinorrhea or epistaxis. Mucous membranes moist. Oropharynx without tonsillar hypertrophy exudate or other lesions. NECK: Supple. No adenopathy or masses. CHEST: No respiratory distress. Clear to auscultation. No wheezes rales or rhonchi HEART: Regular rate and rhythm. No murmur heard. Normal peripheral pulses. ABDOMEN: Mild tenderness to the epigastrium. Soft, otherwise nontender, nondistended, normal active bowel sounds. MSK: Normal range of motion. No edema. SKIN: Warm, dry, no rash. NEURO: Alert and oriented x4. No focal deficits. PSYCH: Normal mood and affect. <Fidel Muniz PA-C - Last Filed: 03/08/24 01:56> Course EXTENDED DAY TEACHER/PA Physician Supervision For this patient encounter, I reviewed the EXTENDED DAY TEACHER or PA documentation, treatment plan, and medical decision making; and I had [id number] time with this patient. <Lee Dee MD - Last Filed: 03/08/24 02:54> Vital Signs Vital signs: Vital Signs Temperature 36.5 C 03/07/24 21:24 Pulse Rate 70 03/07/24 21:24 Respiratory Rate 20 03/07/24 21:24 Blood Pressure 156/66 H 03/07/24 21:24 Pulse Oximetry 100 03/07/24 21:24 Oxygen Delivery Room Air 03/07/24 21:24 Temperature 36.5 C 03/07/24 21:24 Pulse Rate 66 03/08/24 01:14 Respiratory Rate 15 03/08/24 01:14 Blood Pressure 133/115 H 03/08/24 01:14 Pulse Oximetry 99 03/08/24 01:14 Oxygen Delivery Room Air 03/07/24 21:24 <Fidel Muniz PA-C - Last Filed: 03/08/24 01:56> Vital Signs Temperature 36.5 C 03/07/24 21:24 Pulse Rate 70 03/07/24 21:24 Respiratory Rate 20 03/07/24 21:24 Blood Pressure 156/66 H 03/07/24 21:24 Pulse Oximetry 100 03/07/24 21:24 Oxygen Delivery Room Air 03/07/24 21:24 Temperature 36.5 C 03/07/24 21:24 Pulse Rate 66 03/08/24 01:14 Respiratory Rate 15 03/08/24 01:14 Blood Pressure 133/115 H 03/08/24 01:14 Pulse Oximetry 99 03/08/24 01:14 Oxygen Delivery Room Air 03/07/24 21:24 <Lee Dee MD - Last Filed: 03/08/24 02:54> MDM - Abdominal Pain MDM Narrative Medical decision making narrative: CT scan was obtained that showed no acute abnormality <Lee Dee MD - Last Filed: 03/08/24 02:54> Lab Data Result diagrams: 03/07/24 22:45 03/07/24 22:45 <Fidel Muniz PA-C - Last Filed: 03/08/24 01:56> Labs: Lab Results 03/07/24 03/08/24 Range/Units 22:45 00:13 WBC 8.5 (4.5-10.0) K/mm3 RBC 4.29 (4.2-5.4) M/mm3 Hgb 12.1 (12.0-15.0) g/dL Hct 37.1 (37.0-47.0) % MCV 86.5 (80-100) fl MCH 28.2 (26-34) pg MCHC 32.6 (32-36) g/dl RDW 14.0 (11.5-14.5) % Plt Count 241 (150-375) k/mm3 MPV 10.9 H (7.4-10.4) fl Immature Gran % (Auto) 0.4 (0-0.5) % Neut % (Auto) 56.7 (45.5-73.1) % Lymph % (Auto) 32.5 (18.3-44.2) % [facility] % (Auto) 8.5 (2.6-8.5) % Eos % (Auto) 1.5 (0-4.4) % Baso % (Auto) 0.4 (0.2-1.2) % Lymph # (Auto) 2.75 (0.9-3.2) K/mm3 [facility] # (Auto) 0.7 H (0.1-0.6) K/mm3 Eos # (Auto) 0.1 (0-0.3) K/mm3 Baso # (Auto) 0.0 (0.0-0.1) K/mm3 Abs Immat Gran (auto) 0.03 (0.00-0.031) K/mm3 Absolute Neuts (auto) 4.8 (1.3-6.7) K/mm3 Absolute Nucleated RBC 0.000 (0.0-0.012) K/mm3 Nucleated RBC % 0.0 (0.0-0.2) % Sodium 137 (137-145) mmol/L Potassium 3.8 (3.4-5.0) mmol/L Chloride 110 H (98-107) mmol/L Carbon Dioxide 26 (22-30) mmol/L Anion Gap 1 L (4-12) mmol/L BUN 15 (7-17) mg/dL Creatinine 0.60 L (0.7-1.0) mg/dL Estim Creat Clear Calc 99 ml/min Estimated GFR > 60 (59 - ) Glucose 152 H (65-110) mg/dL Calcium 9.2 (8.4-10.2) mg/dL Total Bilirubin 1.0 (0.2-1.3) mg/dL AST 294 H (14-36) U/L ALT 199 H (6-35) U/L Alkaline Phosphatase 187 H (38-126) U/L Total Protein 7.0 (6.3-8.2) g/dL Albumin 3.9 (3.5-5.1) g/dL Lipase 226 (23-300) U/L Urine Color Dark yellow (Yellow) Urine Appearance Cloudy H (Clear) Urine pH 5.0 (5.0-9.0) Ur Specific Alice 1.030 (1.001-1.035) Urine Protein 1+ H (Negative) mg/dL Urine Glucose (UA) Negative (Negative) mg/dL Urine Ketones Trace H (Negative) mg/dL Ur Blood (Man) Negative (Negative) Urine Nitrate Negative (Negative) Urine Bilirubin 1+ H (Negative) Urine Urobilinogen 1.0 (<2.0) mg/dL Leukocyte Esterase Rfl 1+ H (Negative) TRACEY/UL Urine RBC 0-2 (0-2) /hpf Urine WBC 11-20 H (0-3) /hpf Ur Squamous Epith Cells Moderate (Few) /hpf Urine Bacteria 4+ H /hpf Urine Casts 0-2 <Fidel Muniz PA-C - Last Filed: 03/08/24 01:56> Lab Results 03/07/24 03/08/24 Range/Units 22:45 00:13 WBC 8.5 (4.5-10.0) K/mm3 RBC 4.29 (4.2-5.4) M/mm3 Hgb 12.1 (12.0-15.0) g/dL Hct 37.1 (37.0-47.0) % MCV 86.5 (80-100) fl MCH 28.2 (26-34) pg MCHC 32.6 (32-36) g/dl RDW 14.0 (11.5-14.5) % Plt Count 241 (150-375) k/mm3 MPV 10.9 H (7.4-10.4) fl Immature Gran % (Auto) 0.4 (0-0.5) % Neut % (Auto) 56.7 (45.5-73.1) % Lymph % (Auto) 32.5 (18.3-44.2) % [facility] % (Auto) 8.5 (2.6-8.5) % Eos % (Auto) 1.5 (0-4.4) % Baso % (Auto) 0.4 (0.2-1.2) % Lymph # (Auto) 2.75 (0.9-3.2) K/mm3 [facility] # (Auto) 0.7 H (0.1-0.6) K/mm3 Eos # (Auto) 0.1 (0-0.3) K/mm3 Baso # (Auto) 0.0 (0.0-0.1) K/mm3 Abs Immat Gran (auto) 0.03 (0.00-0.031) K/mm3 Absolute Neuts (auto) 4.8 (1.3-6.7) K/mm3 Absolute Nucleated RBC 0.000 (0.0-0.012) K/mm3 Nucleated RBC % 0.0 (0.0-0.2) % Sodium 137 (137-145) mmol/L Potassium 3.8 (3.4-5.0) mmol/L Chloride 110 H (98-107) mmol/L Carbon Dioxide 26 (22-30) mmol/L Anion Gap 1 L (4-12) mmol/L BUN 15 (7-17) mg/dL Creatinine 0.60 L (0.7-1.0) mg/dL Estim Creat Clear Calc 99 ml/min Estimated GFR > 60 (59 - ) Glucose 152 H (65-110) mg/dL Calcium 9.2 (8.4-10.2) mg/dL Total Bilirubin 1.0 (0.2-1.3) mg/dL AST 294 H (14-36) U/L ALT 199 H (6-35) U/L Alkaline Phosphatase 187 H (38-126) U/L Total Protein 7.0 (6.3-8.2) g/dL Albumin 3.9 (3.5-5.1) g/dL Lipase 226 (23-300) U/L Urine Color Dark yellow (Yellow) Urine Appearance Cloudy H (Clear) Urine pH 5.0 (5.0-9.0) Ur Specific Alice 1.030 (1.001-1.035) Urine Protein 1+ H (Negative) mg/dL Urine Glucose (UA) Negative (Negative) mg/dL Urine Ketones Trace H (Negative) mg/dL Ur Blood (Man) Negative (Negative) Urine Nitrate Negative (Negative) Urine Bilirubin 1+ H (Negative) Urine Urobilinogen 1.0 (<2.0) mg/dL Leukocyte Esterase Rfl 1+ H (Negative) TRACEY/UL Urine RBC 0-2 (0-2) /hpf Urine WBC 11-20 H (0-3) /hpf Ur Squamous Epith Cells Moderate (Few) /hpf Urine Bacteria 4+ H /hpf Urine Casts 0-2 <Lee Dee MD - Last Filed: 03/08/24 02:54> Discharge Plan Discharge Clinical Impression: Acute UTI <Fidel Muniz PA-C - Last Filed: 03/08/24 01:56> Patient Disposition: Home, Self-Care <Fidel Muniz PA-C - Last Filed: 03/08/24 01:56> Condition: Stable <Fidel Muniz PA-C - Last Filed: 03/08/24 01:56> Instructions: Antibiotic Form <Fidel Muniz PA-C - Last Filed: 03/08/24 01:56> Patient Language: Uzbek <Fidel Muniz PA-C - Last Filed: 03/08/24 01:56> Prescriptions: New cephalexin 500 mg capsule 500 mg PO Q8H 7 Days Qty: 21 0RF No Action aspirin [Adult Aspirin Regimen] 81 mg tablet,delayed release (DR/EC) 81 mg PO DAILY atorvastatin 40 mg tablet 40 mg PO DAILY lisinopril 10 mg tablet 10 mg PO DAILY metformin 1,000 mg tablet 1,000 mg PO DAILY insulin detemir U-100 100 unit/mL (3 mL) insulin pen 60 unit subcut DAILY insulin aspart U-100 [Novolog FlexPen U-100 Insulin] 100 unit/mL (3 mL) insulin pen 10 unit subcut TID <Fidel Muniz PA-C - Last Filed: 03/08/24 01:56> Follow-up/Referrals: PHYSICIAN,PREDATORY ANIMAL EXTERMINATOR [Primary Care Provider] - Azam Mcclain MD [Physician] - <Fidel Muniz PA-C - Last Filed: 03/08/24 01:56> Time of Disposition: 01:55 <Fidel Muniz PA-C - Last Filed: 03/08/24 01:56> 01:55 <Lee Dee MD - Last Filed: 03/08/24 02:54> Sign Out Sign Out Data: Patient Sign Out occurred on 03/08/24 at 02:53. Patient's care was discussed, and care was transferred from Fidel Muniz PA-C to Lee Dee MD. <Fidel Muniz PA-C - Last Filed: 03/08/24 01:56>
--- NOTE | 2024-03-08 00:01 | ECG_ITS ---
Test Date: 2024-03-08 00:33:24 Measurements Intervals [place] Rate: 57 P: 61 IN: 172 QRS: 57 QRSD: 89 T: 46 QT: 435 QTc: 424 Interpretive Statements SINUS BRADYCARDIA NONSPECIFIC T-WAVE ABNORMALITY No previous ECG available for comparison Electronically Signed On 03-08-2024 18:19:14 SCRAPER OPERATOR by Lazarus Lomeli M.D.
[2024-03-08] MEDS: HYDROmorphone HCL INJ (*CRX) 1 MG/ML SYR 0.5 MG IV PUSH ×2 (00:13→02:19)
[2024-03-08] MEDS: ONDANSETRON INJ 4 MG/2 ML VIAL IV PUSH (00:13)
[2024-03-08 00:25] LABS: Add Urine Microscopic? YES; Appearance Urine Cloudy (Clear); Bacteria Urine 4+ /hpf; Bilirubin Urine 1+ (Negative); Blood Urine Negative (Negative); Color Urine Dark Yellow (Yellow); Glucose Urine UA Negative (Negative); Ketones Urine Trace mg/dL (Negative); Leukocyte Esterase Ur 1+ LEU/UL (Negative); Nitrate Urine Negative (Negative); Non Pathogenic Casts 0-2; Protein Urine 1+ mg/dL (Negative); RBC Urine 0-2 /hpf (0-2); Squamous Epithelial Cell Urine Moderate /hpf (Few)
[2024-03-08 01:14] VITALS: BP 133/115; PULSE 66; RESP 15; O2SAT 99
[2024-03-08 03:19] VITALS: BP 134/70; PULSE 63; RESP 18; O2SAT 98
== END 2024-03-08 03:20 | disposition home or self-care (01) ==
PROVIDERS: Emergency Provider Emergency Medicine
DX: N39.0 Urinary tract infection, site not specified (principal); I10 Essential (primary) hypertension; E11.9 Type 2 diabetes mellitus without complications; Z79.82 Long term (current) use of aspirin; Z79.4 Long term (current) use of insulin; E78.5 Hyperlipidemia, unspecified; F17.210 Nicotine dependence, cigarettes, uncomplicated
CPT/HCPCS: 36415; 74177; 80053; 81001; 83690; 85025; 87086; 93005; 96365; 96375; 96376; 99284; J0696; J1171; J2405; Q9967